=== PATIENT | female | born 2000 | race Hispanic/Latino ===

== ENCOUNTER 2025-02-19 14:27 | Emergency (ER) | payer SELFPAY | END 2025-02-19 15:44 | disposition home or self-care (01) | LOC: CSHERS 14:27 | DX: B00.1 Herpesviral vesicular dermatitis (principal); F17.290 Nicotine dependence, other tobacco product, uncomplicated | CPT/HCPCS: 99283 ==

== ENCOUNTER 2025-02-22 22:08 | Emergency (ER) | payer SELFPAY | END 2025-02-22 22:56 | disposition home or self-care (01) | LOC: CSHERS 22:08 | DX: L73.1 Pseudofolliculitis barbae (principal); F17.290 Nicotine dependence, other tobacco product, uncomplicated | CPT/HCPCS: 99282 ==

== ENCOUNTER 2025-03-01 21:49 | Emergency (ER) | payer SELFPAY ==
[2025-03-01 23:58] LABS: Pregnancy Test - Urine (BHCG) Negative (Negative); Pregu Control Background? CLEAR/WHITE (CLR/WHITE); Pregu Control Bar Appear? YES (CONTROL BAR)
== END 2025-03-02 00:18 | disposition home or self-care (01) ==
LOC: CSHERS 21:49
DX: Z00.00 Encounter for general adult medical examination without abnormal findings (principal); F17.290 Nicotine dependence, other tobacco product, uncomplicated; Z55.6 Problems related to health literacy
CPT/HCPCS: 81025; 93005; 99283

== ENCOUNTER 2025-05-27 21:06 | Emergency (ER) | payer SELFPAY ==
[2025-05-27 23:29] LABS: #Basophils Less than 0.03 10x3/uL (0.0-0.2); #Eosinophils 0.11 10x3/uL (0.0-0.5); #Monocytes 0.50 10x3/uL (0.0-1.1); #Neutrophils 4.78 10x3/uL (1.5-8.4); %Basophils 0.2 % (0.0-2.0); %Eosinophils 1.4 % (0.0-6.0); %Lymphocytes 32.4 % (18.0-47.0); %Monocytes 6.2 % (0.0-10.0); %Neutrophils 59.6 % (40.0-75.0); Hematocrit 42.9 % (34.9-44.5); Hemoglobin 14.1 g/dL (12.0-15.5); Mean Corpuscular Hemoglobin 29.0 pg (27.0-33.0); Mean Corpuscular Volume 88.1 fL (81.6-98.3); Platelet Count 220 10x3/uL (150-450); Red Blood Cell (RBC) Count 4.87 10x6/uL (3.90-5.03); White Blood Cell (WBC) Count 8.03 10x3/uL (3.5-10.5)
[2025-05-27 23:39] LABS: BHCG - Serum Negative (NEGATIVE); Pregs Control Background? CLEAR/WHITE (CLR/WHITE); Pregs Control Bar Appear? YES (CONTROL BAR)
[2025-05-27 23:46] LABS: ALT (SGPT) 37 U/L (Less than 34); AST (SGOT) 37 U/L (11-34); Albumin 4.3 g/dL (3.1-4.5); Alkaline Phosphatase 62 U/L (40-110); Anion Gap 15 mmol/L (10-20); BUN (Urea Nitrogen) 14 mg/dL (7.0-18.7); Bilirubin, Total 0.6 mg/dL (0.3-1.2); Calc. Creatinine Clearance 0 mL/min (70-130); Calcium 9.3 mg/dL (7.8-10.44); Carbon Dioxide 23 mmol/L (22-29); Chloride 107 mmol/L (98-107); Globulin 3.5 g/dL (2.4-3.5); Glucose 89 mg/dL (70-105); Potassium 3.7 mmol/L (3.5-5.1); Sodium 141 mmol/L (136-145)
== END 2025-05-28 01:19 | disposition home or self-care (01) ==
LOC: CSHERS 21:06
DX: K11.5 Sialolithiasis (principal); F17.290 Nicotine dependence, other tobacco product, uncomplicated
CPT/HCPCS: 70487; 80053; 84703; 85025